=== PATIENT | female | born 1940 | race Caucasian/White ===

== ENCOUNTER 2017-01-21 05:18 | Day surgery (SDC) | payer MEDICARE ==
[2017-01-20 12:15] LABS: BASOPHILS 0.3 % (0-2); EOSINOPHILS 2.5 % (0-7); HEMATOCRIT 41.9 % (36.0-48.0); HEMOGLOBIN 14.5 g/dL (12-16); IMMATURE GRANULOCYTES 0.3 % (0-5); LYMPHOCYTES 24.7 % (15-50); MCH 31.1 pg (26.0-34.0); MCHC 34.6 g/dL (31.0-37.0); MCV 89.9 fL (80.0-100.0); MEAN PLATELET VOLUME 9.9 fL (7.4-10.4); MONOCYTES 11.9 % (2-11); NEUTROPHILS 60.3 % (40-80); PLATELET COUNT 261 10x3/uL (130-400); RBC 4.66 10x6/uL (4.00-5.40); RDW 12.6 % (11.5-14.5); WBC 6.9 10x3/uL (4.8-10.8)
[2017-01-20 12:27] LABS: CALCIUM 9.4 mg/dL (8.5-10.1); CARBON DIOXIDE 29.1 mmol/L (21.0-32.0); CREATININE - SERUM 0.9 mg/dL (0.6-1.3); POTASSIUM - SERUM 4.1 mmol/L (3.5-5.1)
[~2017-01-21] VITALS: Ht 165.1 cm; Wt 92.5 kg
[~2017-01-21 05:18] MED LIST: ARMOUR THYROID120 MG PO; CALCIUM 600+D T1 TA1 PO; CARAFATE1 G PO; CELEXA20 MG PO; CLEAR LUNGS PO; HYZAAR 50-12.51 TAB PO; LIPITOR20 MG PO; MAGNESIUM OXID250 MG PO; OMEPRAZOLE20 M1 PO; PEPCID20 MG PO; PROBIOTIC1 EAC1 PO; TUMERIC CURCUMIN PO; XANAX0.5 MG PO
[2017-01-21 07:12] VITALS: BP 136/91; Ht 165.1 cm; Wt 92.5 kg
--- NOTE | 2017-01-21 15:19 | NUR ---
1300--IV OUT, PT UP TO DRESS AT THIS TIME. ROB BISHOP 1311--DISCHARGE INSTRUCTIONS GIVEN, PT VERBALIZES UNDERSTANDING. PT OFF UNIT VIA WC. ROB BISHOP
--- NOTE | 2017-01-23 08:42 | OP ---
PATIENT NAME: ZACHARIAH GUTIERREZ MEDICAL RECORD: [id number] :42 LOCATION:D.OPS ADMISSION DATE: SURGEON: ELVIN ARANA MD DATE OF OPERATION: 01/21/2017 PREOPERATIVE DIAGNOSIS: Anorectal nodule, polypoid. POSTOPERATIVE DIAGNOSIS: Anorectal nodule, polypoid. PROCEDURES: 1. Anal evaluation under anesthesia. 2. Transanal resection of a lower rectal mass. SURGEON: Elvin Arana MD. MANUFA[employer]ING [employer]ANT MANAGER: None. BLOOD LOSS: Minimal. ANESTHESIA: General. COMPLICATIONS: None. I thought I was going to have to perform a single column hemorrhoidectomy on this patient; however, I was able to grasp the lesion, pulled it away from the colonic wall and excised in its entirety. I then enclosed the defect with a horizontal mattress 3-0 Vicryl suture. OPERATIVE COURSE: The patient was conveyed to the operating room electively on 01/21/2017. General anesthesia was induced by the anesthesia staff. The patient was placed in the lithotomy position. The anus and perianal areas were sterilely prepped and draped. U-shaped anal retractors were placed. I noted no anal fistula. No anal fissure. The mass was located at 12 o'clock. I was able to grasp the mass, pulled it down and then transected the base of the mass with the Harmonic scalpel. The resulting defect was closed with a horizontal mattress 3-0 Vicryl suture. There was no bleeding. Gelfoam was applied within the anus and rectum. A combination of sterile preparation and a local anesthetic was used to infiltrate the perianal tissues for postoperative analgesia. A topical anesthetic was applied to the external hemorrhoids. The patient was then extubated and conveyed to post-anesthesia care unit where she was in a stable condition. I will see her in the office in 2-3 weeks. TRANSINT:[id number] Voice Confirmation ID: [id number] DOCUMENT ID: [id number] ELVIN ARANA MD at 0842 CC: [id number] DICTATION DATE: 01/21/17 1043 EXTERMINATOR HELPER TERMITE: 01/21/17 1059 [facility] 01/21/17 [place] [id number]
== END 2017-01-21 13:15 | disposition home or self-care (01) ==
LOC: D.OPS 05:18 → D.PAN 09:00 → D.OPS 09:05 → D.PAN 10:15 → D.OPS 10:15
PROVIDERS: Anesthesiology
DX: K62.0 Anal polyp (principal); J45.909 Unspecified asthma, uncomplicated; I10 Essential (primary) hypertension; K21.9 Gastro-esophageal reflux disease without esophagitis; G47.30 Sleep apnea, unspecified; Z95.1 Presence of aortocoronary bypass graft; Z95.5 Presence of coronary angioplasty implant and graft; E66.9 Obesity, unspecified; Z01.812 Encounter for preprocedural laboratory examination

== ENCOUNTER → 2018-09-28 12:39 | Outpatient (CLI) | payer MEDICARE ==
[2017-01-21 07:12] VITALS: BMI 34.0
== END | disposition home or self-care (01) ==
LOC: D.RAD 12:39
PROVIDERS: ATTEND Internal Medicine Gastroenterology
DX: R13.10 Dysphagia, unspecified (principal)